=== PATIENT | female | born 1975 | race Two or more races ===

== ENCOUNTER 2017-08-03 00:55 | Emergency (ER) | payer SELFPAY ==
[~2017-08-03] VITALS: Ht 162.6 cm; Wt 60.0 kg
[2017-08-03] MEDS ORDERED: MORPHINE SULFATE 4 MG/ML CPJ (NOT FOR IM USE) IV STA (01:28)
[2017-08-03] MEDS ORDERED: SODIUM CHLORIDE 0.9% 1,000 ML IV ONE (01:28)
[2017-08-03] MEDS ORDERED: ONDANSETRON HCL 4MG/2ML VIAL IV STA (01:28)
[2017-08-03 01:50] LABS: BASOPHILS % 0.4 % (0.0-2.0); EOSINOPHILS % 1.8 % (0.0-5.0); HEMATOCRIT. 31.5 % (36.0-48.0); HEMOGLOBIN. 10.6 g/dL (12.0-16.0); LYMPHOCYTES % 26.1 % (20.0-50.0); MEAN CORPUSCULAR HEMOGLOBIN 36.1 pg (28.0-32.0); MEAN CORPUSCULAR VOLUME 107.5 fL (81.0-99.0); MEAN PLATELET VOLUME 7.3 fl (7.4-10.4); MONOCYTES % 12.5 % (2.0-8.0); NEUTROPHILS % 59.2 % (40.0-76.0); PLATELET 130 x1000/uL (130-400); RED BLOOD CELL COUNT 2.93 mill/uL (4.2-5.4); RED CELL DISTRIBUTION WIDTH 14.6 % (11.6-14.6)
[2017-08-03 01:58] LABS: PROTHROMBIN TIME 10.6 sec (9.4-11.6)
[2017-08-03 02:08] LABS: CARBON DIOXIDE 22 mEq/L (21-32); CHLORIDE 106 mEq/L (98-107); TROPONIN I < 0.02 ng/mL (0.00-0.04)
[2017-08-03] MEDS ORDERED: MORPHINE SULFATE 4 MG/ML CPJ (NOT FOR IM USE) IV ONE (02:45)
[2017-08-03 02:51] LABS: CLARITY URINE CLEAR (CLEAR); COLOR URINE YELLOW (YELLOW); GLUCOSE URINE NEGATIVE (NEGATIVE); KETONES URINE NEGATIVE (NEGATIVE); LEUKOCYTE ESTERASE URINE NEGATIVE (NEGATIVE); NITRITE URINE NEGATIVE (NEGATIVE); OCCULT BLOOD URINE 3+ (NEGATIVE); PH URINE 5.5 (4.5-8.0); PROTEIN URINE NEGATIVE (NEGATIVE); SPECIFIC GRAVITY URINE 1.025 (1.005-1.030)
[2017-08-03 04:13] VITALS: BP 117/61
== END 2017-08-03 04:16 | disposition home or self-care (01) ==
LOC: ER 00:55
DX: N23 Unspecified renal colic (principal); R31.9 Hematuria, unspecified; D50.9 Iron deficiency anemia, unspecified; R10.9 Unspecified abdominal pain; Z95.0 Presence of cardiac pacemaker
CPT/HCPCS: 36415; 76770; 80053; 81001; 81025; 83690; 84484; 85025; 85610; 96361; 96374; 96375; 96376; 99285; J2270; J2405; J7030

== ENCOUNTER 2017-09-28 11:25 | Emergency (ER) | payer SELFPAY ==
[~2017-09-28] VITALS: Ht 160 cm; Wt 59.0 kg
[2017-09-28] MEDS ORDERED: ONDANSETRON HCL 4MG/2ML VIAL IV STA (12:20)
[2017-09-28] MEDS ORDERED: SODIUM CHLORIDE 0.9% 1,000 ML IV ONE (12:20)
[2017-09-28] MEDS ORDERED: HYDROMORPHONE HCL/PF 2MG/ML CPJ IV ONE (12:30)
[2017-09-28 12:45] LABS: BASOPHILS % 0.3 % (0.0-2.0); EOSINOPHILS % 1.1 % (0.0-5.0); HEMATOCRIT. 35.4 % (36.0-48.0); HEMOGLOBIN. 11.6 g/dL (12.0-16.0); LYMPHOCYTES % 25.7 % (20.0-50.0); MEAN CORPUSCULAR HEMOGLOBIN 34.3 pg (28.0-32.0); MEAN CORPUSCULAR VOLUME 104.9 fL (81.0-99.0); MEAN PLATELET VOLUME 7.2 fl (7.4-10.4); MONOCYTES % 9.2 % (2.0-8.0); NEUTROPHILS % 63.7 % (40.0-76.0); PLATELET 155 x1000/uL (130-400); RED BLOOD CELL COUNT 3.37 mill/uL (4.2-5.4); RED CELL DISTRIBUTION WIDTH 14.1 % (11.6-14.6)
[2017-09-28 12:49] LABS: CHLORIDE 106 mEq/L (98-107)
[2017-09-28 12:51] LABS: PROTHROMBIN TIME 10.4 sec (9.4-11.6)
[2017-09-28 12:57] LABS: CLARITY URINE CLOUDY (CLEAR); COLOR URINE YELLOW (YELLOW); GLUCOSE URINE NEGATIVE (NEGATIVE); KETONES URINE NEGATIVE (NEGATIVE); LEUKOCYTE ESTERASE URINE NEGATIVE (NEGATIVE); NITRITE URINE NEGATIVE (NEGATIVE); OCCULT BLOOD URINE 3+ (NEGATIVE); PROTEIN URINE NEGATIVE (NEGATIVE); SPECIFIC GRAVITY URINE 1.029 (1.005-1.030); UROBILINOGEN URINE 0.2 E.U./dL (0.2-1.0)
[2017-09-28 12:58] LABS: CARBON DIOXIDE 25 mEq/L (21-32)
[2017-09-28 13:06] LABS: HCG SCREEN NEGATIVE
[2017-09-28] MEDS ORDERED: HYDROMORPHONE HCL/PF 2MG/ML CPJ IV NR (15:00)
[2017-09-28] MEDS ORDERED: IOHEXOL-300 100 ML BOTTLE ONE (15:17)
[2017-09-28 15:27] VITALS: BP 122/76
== END 2017-09-28 15:39 | disposition home or self-care (01) ==
LOC: ER 12:30
DX: R31.9 Hematuria, unspecified (principal); R10.32 Left lower quadrant pain; D25.9 Leiomyoma of uterus, unspecified; D72.819 Decreased white blood cell count, unspecified; D64.9 Anemia, unspecified; N20.0 Calculus of kidney; Z98.84 Bariatric surgery status; Z88.0 Allergy status to penicillin; Z95.0 Presence of cardiac pacemaker; Z88.8 Allergy status to other drugs, medicaments and biological substances; V80.010A Animal-rider injured by fall from or being thrown from horse in noncollision accident, initial encounter; Y93.52 Activity, horseback riding; Y92.018 Other place in single-family (private) house as the place of occurrence of the external cause
CPT/HCPCS: 36415; 71260; 74177; 80053; 81001; 83690; 84703; 85025; 85610; 96361; 96374; 96375; 96376; 99285; J1170; J2405; J7030; Q9967